=== PATIENT | male | born 1985 | race Caucasian/White ===

== ENCOUNTER 2018-12-24 09:59 | Emergency (ER) | payer BC ==
[2018-12-24 10:23] VITALS: BP 134/86
--- NOTE | 2018-12-24 11:40 | UC ---
Laceration HPI - HPI Summary HPI Summary: 33-year-old male presents with laceration to his right thumb. States about an hour prior to arrival he accidentally cut his posterior thumb on a metal brake shield while working on his car. Bleeding was controlled prior to arrival with direct pressure. Patient reports full range of motion to the thumb. Denies any numbness or tingling. Last tetanus was in 2018. - History Of Current Complaint Chief Complaint: UCLaceration Stated Complaint: RT THUMB LACERATION Time Seen by Provider: 12/24/18 11:23 Hx Obtained From: Patient Pain Intensity: 0 - Allergies/Home Medications Allergies/Adverse Reactions: Allergies Allergy/AdvReac Type Severity Reaction Status Date / Time Penicillins Allergy Rash Verified 12/24/18 10:24 Home Medications: Home Medications Lisinopril/HCTZ 20/25(NF) [Zestoretic 20/25(NF)] 1 tab PO DAILY 12/24/18 [ History Confirmed 12/24/18] Multivitamin [Multivitamins] 1 cap PO DAILY 12/24/18 [History Confirmed 12/24/18 ] [place]-3 Fatty Acids/Fish Oil [[place] 3] 1 cap PO DAILY 12/24/18 [History Confirmed 12/24/18] Ubidecarenone [Co Q-10] 200 mg PO DAILY 12/24/18 [History Confirmed 12/24/18] PMH/Surg Hx/FS Hx/Imm Hx Cardiovascular History: Hypertension - Surgical History Surgical History: None - Family History Known Family History: Positive: Non-Contributory - Social History Occupation: Employed Full-time Lives: With Family Alcohol Use: None Substance Use Type: None Smoking Status (MU): Never Smoked Tobacco - Immunization History Most Recent Tetanus Shot: 2018 Review of Systems All Other Systems Reviewed And Are Negative: Yes Constitutional: Positive: Negative Skin: Positive: Other - See HPI Respiratory: Positive: Negative Cardiovascular: Positive: Negative Gastrointestinal: Positive: Negative Motor: Positive: Negative Musculoskeletal: Negative: Decreased ROM Neurological: Positive: Negative Is Patient Immunocompromised?: No Physical Exam - Summary Physical Exam Summary: GENERAL APPEARANCE: Well developed, well nourished, alert and cooperative, and appears to be in no acute distress. CARDIAC: Normal S1 and S2. No S3, S4 or murmurs. Rhythm is regular. There is no peripheral edema, cyanosis or pallor. Extremities are warm and well perfused. Capillary refill is less than 2 seconds. Peripheral pulses intact. LUNGS: Clear to auscultation without rales, rhonchi, wheezing or diminished breath sounds. ABDOMEN: Positive bowel sounds. Soft, nondistended, nontender. No guarding or rebound. No masses or hepatosplenomegally. MUSKULOSKELETAL: Normal muscular development. Normal gait. EXTREMITIES: Superficial linear laceration to his dorsal right thumb over the proximal phalanx with bleeding controlled. Full range of motion against resistance. Circulation and sensation intact. SKIN: Skin normal color, texture and turgor. Triage Information Reviewed: Yes Vital Signs: Initial Vital Signs Temp 97.5 F 12/24/18 10:20 Pulse 70 12/24/18 10:20 Resp 16 12/24/18 10:20 BP 134/86 12/24/18 10:20 Pulse Ox 98 12/24/18 10:20 Vital Signs Reviewed: Yes Images Hands: 1 - Superficial linear laceration Laceration Course/Dx - Course/Dx Course Of Treatment: 33-year-old male presents with laceration to his right thumb. States about an hour prior to arrival he accidentally cut his posterior thumb on a metal brake shield while working on his car. Bleeding was controlled prior to arrival with direct pressure. Patient reports full range of motion to the thumb. Denies any numbness or tingling. Last tetanus was in 2018. Afebrile. Vital signs stable. Patient had a superficial linear laceration to his dorsal right thumb over the proximal phalanx with bleeding controlled. Full range of motion against resistance. Circulation and sensation intact. Remainder of exam was unremarkable. The wound was copiously irrigated with normal saline by the RN prior to wound repair. Informed consent on an appropriate time out was taken adequate anesthesia was achieved using 1.5 mL of 1% lidocaine without epinephrine. The wound was then closed with a total of 4 interrupted sutures using 4-0 Prolene. Total length of the wound after closure was 3.5 cm. Patient is to return here or follow up with his primary care provider in 10-14 days for suture removal. Wound care, and anticipatory guidance, and warning symptoms were reviewed with the patient. Verbalizes understanding and agrees with plan of care. - Differential Dx - Laceration/Wound Differental Diagnoses: Laceration - Diagnosis Provider Diagnosis: Laceration of right thumb Discharge - Sign-Out/Discharge Documenting (check all that apply): Patient Departure All imaging exams completed and their final reports reviewed: No Studies - Discharge Plan Condition: Stable Disposition: HOME Patient Education Materials: Care For Your Stitches (ED), Laceration (ED) Referrals: Mick Olvera MD [Primary Care Provider] - Additional Instructions: Leave the dressing that was applied in the clinic in place until tomorrow. Be sure to keep it clean and dry. Starting tomorrow, you may remove the dressing and shower and wash hands as normal. Do not submerge the hand under water to prevent infection. Clean the wound with a mild soap and water at least once a day. Apply some antibiotic ointment and cover with a bandage. This should be changed at least once a day or any time the dressing becomes wet or soiled. Use acetaminophen (Tylenol) or ibuprofen (Advil, Motrin) according to directions as needed for pain. Sutures will need to be removed in 10-14 days. You may return here or with your primary care provider to have this done. Watch for signs of infection including fever greater than 100.5 F, severe pain not managed with pain medication, redness that spreads, swelling of the hand/ fingers, or pus draining from the wound. Seek immediate medical attention should any of these occur. - Billing Disposition and Condition Condition: STABLE Disposition: Home - Attestation Statements Provider Attestation: I was available for consult. This patient was seen by the [facility]. The patient was not presented to , seen by or examined by ma -Bren Mcdonald MD
[2018-12-24] MEDS ORDERED: Lidocaine 1% MPF ** 5 ML VIAL INJ ONE (11:44)
== END 2018-12-24 12:10 | disposition home or self-care (01) ==
LOC: UCCORT 09:59
DX: S61.011A Laceration without foreign body of right thumb without damage to nail, initial encounter (principal); W45.8XXA Other foreign body or object entering through skin, initial encounter; Y93.89 Activity, other specified; Y92.9 Unspecified place or not applicable; I10 Essential (primary) hypertension; Z88.0 Allergy status to penicillin
CPT/HCPCS: 12001; 12002; 99201; G0463